=== PATIENT | female | born 1990 | race Caucasian/White ===

== ENCOUNTER 2021-10-05 20:41 | Emergency (ER) | payer OTHER ==
[2021-10-05 21:05] VITALS: BP 109/68; PULSE 85; RESP 19; TEMP 98.6; BMI 37.2
== END 2021-10-05 23:10 | disposition home or self-care (01) ==
LOC: JERFT 20:41
DX: S09.90XA Unspecified injury of head, initial encounter (principal); W20.8XXA Other cause of strike by thrown, projected or falling object, initial encounter
CPT/HCPCS: 70450-TC; 99284-25